=== PATIENT | male | born 1965 | race Caucasian/White ===

== ENCOUNTER → 2017-05-25 | Outpatient (CLI) | payer OTHER ==
--- NOTE | ~2017-05-25 | 2DMMODE ---
[facility] [address] [place] [address] 2 D/M-MODE ECHOCARDIOGRAM Name: BRIDGETTE COURTNEY Room #: [facility] [id number] Admission: 05/25/17 Attend Phys: Fitz Lara, Discharge: Date of : 65 Date of Service: 05/25/17 1635 Report #: [id number] THIS REPORT FOR: //name// APPROVED REPORT Study performed: 05/25/2017 15:02:30 EXAM: Comprehensive 2D, Doppler, and color-flow Echocardiogram Patient Location: Out-Patient Status: routine BSA: 2.22 HR: 60 bpm BP: 132/86 mmHg Rhythm: NSR Other Information Study Quality: Adequate Indications Hypertension/HDD Hx: AAo Aneurysm 2D Dimensions RVDd: 27.66 mm LVEF(%): 58.52 (>50%) IVSd: 12.42 (7-11mm) LVOT Diam: 22.27 (18-24mm) LVDd: 42.75 mm PWd: 11.28 (7-11mm) Ascending Ao: 49.84 (22-36mm) LVDs: 29.65 (25-40mm) Aortic Root: 35.50 mm Lee's LVEF: 58.52 % Volumes Left Atrial Volume (Systole) Single Plane 4CH: 51.77 mL Single Plane 2CH: 36.07 mL LA ESV Index: 21.00 mL/m2 Aortic Valve AoV Peak Campos.: 1.69 m/s AO Peak Gr.: 11.46 mmHg LVOT Max P.33 mmHg LVOT Max V: 0.91 m/s NATY Vmax: 2.10 cm2 Mitral Valve E/A Ratio: 1.0 [facility] [place] [address] 2 D/M-MODE ECHOCARDIOGRAM Name: BRIDGETTE COURTNEY Room #: [facility]#: [id number] Admission: 05/25/17 Attend Phys: Fitz Lara, Discharge: Date of : 65 Date of Service: 05/25/17 1635 Report #: [id number] MV Decel. Time: 229.32 ms MV E Max Campos.: 0.65 m/s MV A Campos.: 0.68 m/s MV PHT: 66.50 ms Pulmonary Valve PV Peak Campos.: 0.84 m/s PV Peak Gr.: 2.82 mmHg Pulmonary Vein P Vein S: 0.57 m/s P Vein A: 0.22 m/s P Vein D: 0.39 m/s P Vein A Dur.: 110.7 msec P Vein S/D Ratio: 1.46 Tricuspid Valve TR Peak Campos.: 2.34 m/s RAP Estimate: 5.00 mmHg TR Peak Gr.: 21.90 mmHg PA Pressure: 27.00 mmHg Left Ventricle The left ventricle is normal size. There is normal LV segmental wall motion. Mild concentric left ventricular hypertrophy. The left ventricular systolic function is normal. LVEF is 55-60%. Grade I - abnormal relaxation pattern. Right Ventricle The right ventricle is normal size. The right ventricular systolic function is normal. Atria The left atrium size is normal. The right atrium size is normal. Aortic Valve The aortic valve is mildly sclerotic. Mild aortic regurgitation. There is no aortic valvular stenosis. Mitral Valve The mitral valve is normal in structure. Mild mitral regurgitation. No evidence of mitral valve stenosis. Tricuspid Valve The tricuspid valve is normal in structure. Mild tricuspid regurgitation. Estimated PAP 25 mmHg. Pulmonic Valve The pulmonary valve is normal in structure. There is no pulmonic [address] [address] 2 D/M-MODE ECHOCARDIOGRAM Name: BRIDGETTE COURTNEY Room #: REG Lara#: [id number] Admission: 05/25/17 Attend Phys: Fitz Lara, Discharge: Date of : 65 Date of Service: 05/25/17 1635 Report #: [id number] valvular regurgitation. Great Vessels Aortic root is normal in size. Ascending aorta is dilated at 5.0cm. IVC is normal in size and collapses >50% with inspiration. Pericardium There is no pericardial effusion. <Conclusion> The left ventricular systolic function is normal. There is normal LV segmental wall motion. LVEF is 55-60%. Grade I diastolic dysfunction The aortic valve is mildly sclerotic, not stenotic. Mild aortic regurgitation. The mitral valve is normal in structure. Mild mitral regurgitation. Ascending aorta is dilated at 5.0cm. Pulmonary artery pressure of 25mmHg There is no pericardial effusion. <ELECTRONICALLY SIGNED> By: Fitz Lara MD, FACC 05/25/17 1635 1635 1635 Fitz Lara MD, FAC /INF
== END ==
LOC: CV 09:33
DX: I08.0 Rheumatic disorders of both mitral and aortic valves (principal); I10 Essential (primary) hypertension

== ENCOUNTER → 2018-05-30 | Outpatient (CLI) | payer OTHER ==
--- NOTE | 2018-05-31 07:41 | 2DMMODE ---
[facility] [place] [address] 2 D/M-MODE ECHOCARDIOGRAM Name: BRIDGETTE COURTNEY [facility]: [facility] [id number] ������������� Admission: 05/30/18 ������������� Attend Phys: Fitz Lara, Discharge: ��� ������������� ��� Date of : 65 Date of Service: 05/31/18 0741 �� Report #: [id number] �������� ��������������������������������������������[id number] THIS REPORT FOR: //name// APPROVED REPORT Study performed: 05/30/2018 14:50:40 EXAM: Comprehensive 2D, Doppler, and color-flow Echocardiogram Patient Location: Out-Patient Room #: Echo lab 2 Status: routine BSA: 2.30 HR: 81 bpm BP: 140/82 mmHg Rhythm: NSR Other Information Study Quality: Adequate Indications CAD Hypertension/HDD 2D Dimensions RVDd: 31.78 mm IVSd: 9.96 (7-11mm) LVOT Diam: 23.54 (18-24mm) LVDd: 53.32 mm PWd: 9.20 (7-11mm) Ascending Ao: 41.20 (22-36mm) LVDs: 36.60 (25-40mm) Aortic Root: 38.89 mm Volumes Left Atrial Volume (Systole) Single Plane 4CH: 29.03 mL Single Plane 2CH: 31.02 mL LA ESV Index: 14.00 mL/m2 Aortic Valve AoV Peak Campos.: 1.46 m/s AO Peak Gr.: 8.53 mmHg LVOT Max P.02 mmHg LVOT Max V: 1.00 m/s NATY Vmax: 2.99 cm2 Mitral Valve E/A Ratio: 0.8 MV Decel. Time: 209.15 ms [facility] [address] [address] 2 D/M-MODE ECHOCARDIOGRAM Name: BRIDGETTE COURTNEY Room #: [facility]#: [id number] ������������� Admission: 05/30/18 ������������� Attend Phys: Fitz Lara, Discharge: ��� ������������� ��� Date of : 65 Date of Service: 05/31/18 0741 �� Report #: [id number] �������� ��������������������������������������������[id number] MV E Max Campos.: 0.57 m/s MV A Campos.: 0.71 m/s MV PHT: 60.65 ms IVRT: 143.02 ms Pulmonary Valve PV Peak Campos.: 0.93 m/s PV Peak Gr.: 3.44 mmHg Pulmonary Vein P Vein S: 0.57 m/s P Vein A: 0.26 m/s P Vein D: 0.32 m/s P Vein A Dur.: 115.3 msec P Vein S/D Ratio: 1.78 Tricuspid Valve TR Peak Campos.: 2.53 m/s TR Peak Gr.: 25.58 mmHg PA Pressure: 25.00 mmHg Left Ventricle The left ventricle is normal size. Regional wall motion is not well visualized but grossly normal. There is normal left ventricular wall thickness. The left ventricular systolic function is normal. The left ventricular ejection fraction is within the normal range. LVEF is 55-60%. Mild diastolic dysfunction is present (impaired relaxation pattern). Right Ventricle The right ventricle is normal size. The right ventricular systolic function is normal. Atria The left atrium size is normal. The right atrium size is normal. Aortic Valve The aortic valve is sclerotic Aortic valve is not well visualized. Mild aortic regurgitation. There is no aortic valvular stenosis. Mitral Valve The mitral valve is normal in structure. Mild mitral regurgitation. No evidence of mitral valve stenosis. Tricuspid Valve The tricuspid valve is normal in structure. There is trace tricuspid regurgitation. Estimated PAP 25 mmHg plus ther right atrial pressure. [address] [address] 2 D/M-MODE ECHOCARDIOGRAM Name: ROZBRIDGETTE WELLS [facility] #: REG [facility] [id number] ������������� Admission: 05/30/18 ������������� Attend Phys: Fitz Lara, Discharge: ��� ������������� ��� Date of : 65 Date of Service: 05/31/18 0741 �� Report #: [id number] �������� ��������������������������������������������[id number] There is no pulmonary hypertension. Pulmonic Valve The pulmonary valve is normal in structure. There is no pulmonic valvular regurgitation. Great Vessels The aortic root is normal in size. Ascending aorta is dilated at 5 cm. IVC is not well visualized. Pericardium There is no pericardial effusion. <Conclusion> The left ventricular systolic function is normal. LVEF 55-60%. Mild diastolic dysfunction is present (impaired relaxation pattern). The aortic valve is sclerotic. Aortic valve is not well visualized. Mild aortic regurgitation, no stenosis. The mitral valve is normal in structure. Mild mitral regurgitation. Ascending aorta is dilated (5 cm). There is no pericardial effusion. Similar to study dated May 2017 ��������������������������������������������� <ELECTRONICALLY SIGNED> ���������������������������������������� By: Fitz Lara MD, FACC ��������������������������������������������� 05/31/18 0741 0 0 Fitz Lara MD, FACC /INF
== END ==
LOC: CV 08:01
DX: I08.0 Rheumatic disorders of both mitral and aortic valves (principal); I25.10 Atherosclerotic heart disease of native coronary artery without angina pectoris; I10 Essential (primary) hypertension; E78.5 Hyperlipidemia, unspecified; Z82.49 Family history of ischemic heart disease and other diseases of the circulatory system; Z91.030 Bee allergy status

== ENCOUNTER → 2019-12-25 | Outpatient (CLI) | payer OTHER | LOC: SJCVCIMAG 09:55 | PROVIDERS: ATTEND Internal Medicine | DX: I08.2 Rheumatic disorders of both aortic and tricuspid valves (principal); I10 Essential (primary) hypertension; I71.2 Thoracic aortic aneurysm, without rupture; E78.2 Mixed hyperlipidemia ==

== ENCOUNTER → 2021-01-12 | Outpatient (CLI) | payer OTHER | LOC: SJCVCIMAG 07:54 | PROVIDERS: ATTEND Internal Medicine | DX: I08.2 Rheumatic disorders of both aortic and tricuspid valves (principal); I71.2 Thoracic aortic aneurysm, without rupture; I10 Essential (primary) hypertension; E78.5 Hyperlipidemia, unspecified; E78.00 Pure hypercholesterolemia, unspecified; Z79.899 Other long term (current) drug therapy; Z72.89 Other problems related to lifestyle ==